=== PATIENT | male | born 1970 | race Caucasian/White ===

== ENCOUNTER 2016-11-10 17:54 | Emergency (ER) | payer MEDICARE, OTHER ==
[~2016-11-10 17:54] MED LIST: ASPIRIN325 MG PO; FLONASE 0.05% N16 GM; HCTZ25 MG PO; LOPRESSOR50 MG PO; NEURONTIN800 MG PO; NITROGLYCERIN0.4 MG SL; NORVASC10 MG PO; OXYCODONE HCL20 MG PO; PROVENTIL INHAL17 GM INH; ZANAFLEX4 MG PO; ZESTRIL40 MG PO; ZOCOR20 MG PO
[2016-11-10 18:41] LABS: BASO % 0.1 % (0.2-1.2); GRAN # 9.8 10_X3_uL (1.8-5.4); GRAN % 83.5 % (34.0-67.9); HEMATOCRIT 53.5 % (40-51); HEMOGLOBIN 18.3 g/dL (13.7-17.5); LYMPH # 1.5 10_X3_uL (1.3-3.6); LYMPH % 12.9 % (21.8-53.1); MEAN CORPUSCULAR HEMOGLOBIN 30.9 pg (27.0-33.0); MEAN CORPUSCULAR HGB CONC 34.2 g/dL (32.0-36.0); MEAN CORPUSCULAR VOLUME 90.4 fL (79-92); MEAN PLATELET VOLUME 9.9 fl (7.5-11.5); MONO # 0.4 10_X3_uL (0.3-0.8); MONO % 3.5 % (5.3-12.2); PLATELET COUNT 307 x10_3/uL (163-337); RED BLOOD COUNT 5.92 x10_6/uL (4.6-6.1); RED CELL DISTRIBUTION WIDTH 13.2 % (11.6-14.4); WHITE BLOOD COUNT 11.7 x10_3/uL (4.2-9.1)
[2016-11-10 18:54] LABS: ALBUMIN 4.6 gm/dL (3.4-5.0); ALKALINE PHOSPHATASE 126 U/L (50-136); ALT/SGPT 13 U/L (7.53-40.17); AMYLASE 31 U/L (15.62-74.58); AST/SGOT 17 U/L (6.66-35.34); BILIRUBIN,TOTAL 0.39 mg/dL (0.0-1.0); BLOOD UREA NITROGEN 11 mg/dL (7-18); CALCIUM 9.9 mg/dL (8.7-10.7); CARBON DIOXIDE 27 mmol/L (21-32); CREATININE 0.7 mg/dL (0.6-1.3); GLUCOSE,RANDOM 150 mg/dL (70-99); LIPASE 7 U/L (6.75-60.75); POTASSIUM 3.6 mmol/L (3.5-5.1); SODIUM 141 mmol/L (136-145); TOTAL PROTEIN 8.4 gm/dL (6.4-8.2)
== END 2016-11-10 22:58 | disposition home or self-care (01) ==
LOC: ER 17:54
PROVIDERS: General Practice
DX: I16.0 Hypertensive urgency (principal); I10 Essential (primary) hypertension; R07.81 Pleurodynia; R10.9 Unspecified abdominal pain; R11.2 Nausea with vomiting, unspecified; M54.9 Dorsalgia, unspecified; G89.29 Other chronic pain; R00.2 Palpitations; F17.210 Nicotine dependence, cigarettes, uncomplicated; Z88.0 Allergy status to penicillin; Z88.1 Allergy status to other antibiotic agents; Z88.5 Allergy status to narcotic agent; Z88.8 Allergy status to other drugs, medicaments and biological substances; Z79.899 Other long term (current) drug therapy; Z79.82 Long term (current) use of aspirin
CPT/HCPCS: 36415; 71260; 80053; 82150; 83690; 85025; 93005; 96374; 96375; 96376; 99070; 99284; 99284-25; G0480; J7040; Q0169; Q9967